=== PATIENT | male | born 1960 | race African-American/Black ===

== ENCOUNTER 2017-12-18 04:12 | Emergency (ER) | payer MEDICAID ==
[~2017-12-18] VITALS: Ht 188 cm; Wt 73.0 kg
[2017-12-18] MEDS ORDERED: KETOROLAC 60MG/2ML VIAL IM ONE (06:45)
[2017-12-18 06:51] VITALS: BP 128/72
== END 2017-12-18 06:54 | disposition home or self-care (01) ==
LOC: ER 04:12
DX: S39.012A Strain of muscle, fascia and tendon of lower back, initial encounter (principal); S16.1XXA Strain of muscle, fascia and tendon at neck level, initial encounter; F17.200 Nicotine dependence, unspecified, uncomplicated; V89.0XXA Person injured in unspecified motor-vehicle accident, nontraffic, initial encounter; Y93.89 Activity, other specified; Y92.89 Other specified places as the place of occurrence of the external cause; Y99.8 Other external cause status
CPT/HCPCS: 96372; 99283; J1885